=== PATIENT | male | born 1985 | race Caucasian/White ===

== ENCOUNTER 2018-10-01 21:09 | Emergency (ER) | payer SELFPAY ==
[~2018-10-01] VITALS: Ht 182.9 cm; Wt 108.9 kg
[2018-10-01 21:19] VITALS: Ht 182.9 cm; Wt 108.9 kg
[2018-10-01 23:50] VITALS: BP 132/76
== END 2018-10-01 23:51 | disposition home or self-care (01) ==
LOC: ED 21:09
DX: S01.01XA Laceration without foreign body of scalp, initial encounter (principal); J45.909 Unspecified asthma, uncomplicated; W01.0XXA Fall on same level from slipping, tripping and stumbling without subsequent striking against object, initial encounter; Y93.89 Activity, other specified; Y92.89 Other specified places as the place of occurrence of the external cause; Y99.8 Other external cause status